=== PATIENT | female | born 1980 | race Caucasian/White ===

== ENCOUNTER 2020-11-03 14:24 | Emergency (ER) | payer OTHER, SELFPAY ==
[2020-11-03 14:27] VITALS: BP 150/90; PULSE 85; RESP 18; TEMP 36.4; O2SAT 97
[2020-11-03 14:46] LABS: Basophils Absolute Auto 0.1 K/mm3 (0.0-0.1); Basophils Percent Auto 0.5 % (0.2-1.2); Eosinophils Absolute Auto 0.1 K/mm3 (0-0.3); Eosinophils Percent Auto 1.1 % (0-4.4); Hemoglobin 14.4 g/dL (12.0-15.0); Immature Granulocyte Absolute 0.05 K/mm3 (0.00-0.031); Immature Granulocyte Percent A 0.5 % (0-0.5); Lymphocytes Absolute Auto 2.36 K/mm3 (0.9-3.2); Lymphocytes Percent Auto 22.6 % (18.3-44.2); Mean Corpuscular HGB Conc 33.5 g/dl (32-36); Mean Corpuscular Hemoglobin 30.6 pg (26-34); Mean Corpuscular Volume 91.5 fl (80-100); Mean Platelet Volume 9.6 fl (7.4-10.4); Monocytes Absolute Auto 0.5 K/mm3 (0.1-0.6); Monocytes Percent Auto 5.1 % (2.6-8.5); Neutrophils Absolute Auto 7.3 K/mm3 (1.3-6.7); Neutrophils Percent Auto 70.2 % (45.5-73.1); Platelet Count Result 367 k/mm3 (150-375); Red Cell Distribution Width 12.2 % (11.5-14.5); White Blood Count 10.4 K/mm3 (4.5-10.0)
[2020-11-03 14:58] LABS: Alanine Aminotransferase 36 U/L (4-35); Albumin Level 4.4 g/dL (3.5-5.1); Alkaline Phosphatase 60 U/L (38-126); Anion Gap 4 mmol/L (8-16); Aspartate Amino Transferase 37 U/L (14-36); Bilirubin,Total 0.3 mg/dL (0.2-1.3); Blood Urea Nitrogen 15 mg/dL (7-17); Calcium 9.3 mg/dL (8.4-10.2); Carbon Dioxide 30 mmol/L (22-30); Chloride 104 mmol/L (98-107); Estimated CRCL calculation 77 ml/min; Estimated Glomerular Filt Rate > 60; Glucose 100 mg/dL (65-105); Lipase 70 U/L (23-300); Potassium 3.8 mmol/L (3.4-5.0); Sodium 138 mmol/L (137-145)
[2020-11-03 14:59] VITALS: BP 121/90; PULSE 73
[2020-11-03 15:03] VITALS: BP 127/92; PULSE 71
[2020-11-03 15:05] VITALS: BP 132/90; PULSE 86
[2020-11-03 15:05] LABS: Add Urine Microscopic? NO; Appearance Urine Clear (Clear); Bilirubin Urine Negative (Negative); Blood Urine Negative (Negative); Color Urine Straw (Yellow); Glucose Urine UA Negative (Negative); Ketones Urine Negative (Negative); Leukocyte Esterase Ur Negative LEU/UL (Negative); Mucus Urine Rare /lpf; Nitrate Urine Negative (Negative); Protein Urine Negative (Negative); RBC Urine 0-2 /hpf (0-2); Specific Grav Ur 1.011 (1.001-1.035); Squamous Epithelial Cell Urine Rare /hpf (Few); Urobilinogen Urine Negative mg/dL (<2.0)
--- NOTE | 2020-11-03 16:27 | ECG_ITS ---
Measurements Intervals [place] Rate: 59 P: 65 IN: 144 QRS: 79 QRSD: 87 T: 57 QT: 403 QTc: 400 Interpretive Statements SINUS BRADYCARDIA POSSIBLE LEFT ATRIAL ENLARGEMENT BORDERLINE ECG Electronically Signed On 11-03-2020 19:21:37 MATERIAL CUTTER by Ghassan Galo D.O.
[2020-11-03 17:08] LABS: Troponin I < 0.012 ng/mL (0.000-0.034)
[2020-11-03 18:07] LABS: Magnesium 2.3 mg/dL (1.6-2.3)
[2020-11-03] MEDS: PROCHLORPERAZINE EDISYLATE 10 MG/2 ML VIAL IV PUSH (18:15)
[2020-11-03] MEDS: KETOROLAC 30 MG/ML VIAL (*BKC) IV PUSH (18:15)
[2020-11-03 18:18] LABS: Troponin I < 0.012 ng/mL (0.000-0.034)
[2020-11-03 18:19] VITALS: BP 122/78; PULSE 70; RESP 18; O2SAT 99
--- NOTE | 2020-11-03 19:01 | ED.ARRPALP ---
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 One of the nurses there checked her pulse and thought it was thready and irregular so she left work and came to the hospital. At this point her symptoms have been completely resolved for a couple hours and she is at baseline. She has no cardiac history and really no history of episodes like this previously. MD complaint: skipped beats and irregular heart beat Related Data Allergies Allergy/AdvReac Type Severity Reaction Status Date / Time No Known Allergies Allergy Verified 11/03/20 14:33 Review of Systems Review of Systems: All systems reviewed & are unremarkable except as noted in HPI and below Constitutional: Constitutional: Denies chills, Reports fatigue, Denies fever(s), Denies headache(s) and Denies weakness Eyes: Eyes: Reports no additional eye complaints and Denies change in vision ENT: Denies headache(s), Denies epistaxis, Denies nasal congestion and Denies sore throat Cardiovascular: Cardiovascular: Denies chest pain, Reports rapid heart rate, Denies leg edema, Denies palpitations and Denies dyspnea Respiratory: Respiratory: Denies cough, Reports dyspnea and Denies wheezing Gastrointestinal: Gastrointestinal: Denies abdominal pain, Denies diarrhea, Reports nausea and Denies vomiting Genitourinary: Genitourinary: Denies hematuria, Denies urinary frequency and Denies dysuria Musculoskeletal: Musculoskeletal: Denies deformity, Denies arthralgias, Denies joint swelling, Denies muscle weakness and Denies numbness Integumentary/Breasts: Skin/Breast: Denies rash and Denies wounds Neurologic: Denies headache(s), Denies focal weakness, Denies numbness and Denies weakness Psychiatric: Psychiatric: Reports no additional psychiatric complaints Endocrine: Endocrine: Denies fatigue and Denies palpitations Hematologic/Lymphatic: Hematologic/Lymphatic: Denies easy bleeding and Denies easy bruising Allergic/Immunologic: Allergic/Immunologic: Denies wheezing PMFSH Social History Social History Gender identity (if verbalized by the patient): Female Exam Const: General: no acute distress, well developed, alert and awake Nutritional Appearance: well nourished Orientation/consciousness: patient oriented x3 (alert) Limitations: no limitations HENMT: Head: normocephalic and atraumatic Ears: external ears normal General nose exam: No nasal discharge present and no epistaxis Face and sinus: face symmetric Eyes: Conjunctivae: conjunctivae normal Sclera: sclerae normal EOM: EOMs intact bilaterally Neck: Neck: normal visual inspection, supple and no JVD Chest: Chest palpation & inspection: deferred Resp: Effort & Inspection: normal respiratory effort Auscultation: clear to auscultation bilaterally, no rales, no rhonchi, no wheezes and other (BS =) Cardio: Rate: regular rate Rhythm: regular rhythm Heart sounds: no gallops and no murmurs GI: Inspection: normal to inspection and non-distended GI Palp: Yes Soft to palpation and No Tenderness to palpation present (GI) Back/Spine/Pelvis: Thoracic/Lumbar Spine: thoracic and lumbar spine normal to inspection Skin: General skin exam: normal color and no rashes or lesions noted Neuro: General: patient oriented x3 (alert), moves all extremities, no focal motor deficits and CN's II-XI intact bilaterally Cranial nerves: Yes facial symmetry Speech: n
== END 2020-11-03 19:23 | disposition home or self-care (01) ==
PROVIDERS: Emergency Provider Emergency Medicine
DX: R00.2 Palpitations (principal); R00.1 Bradycardia, unspecified; R94.31 Abnormal electrocardiogram [ECG] [EKG]
CPT/HCPCS: 36415; 80053; 81003; 81025; 83690; 83735; 84484; 85025; 93005; 96374; 96375; 99284; J0780; J1885

== ENCOUNTER → 2020-12-01 17:03 | Outpatient (CLI) | payer OTHER, SELFPAY ==
--- NOTE | ~2020-12-01 | MM_ITS ---
EXAMINATION: MM screening filemon BI w nasrin HISTORY: Screening mammogram TECHNIQUE: Craniocaudal and mediolateral oblique 3-D tomosynthesis images were obtained and synthetic 2-D images were generated. Bilateral rotated lateral cc views. CAD analysis was submitted and interp reted. COMPARISON: No prior mammogram is available for comparison at this institution. BREAST PARENCHYMAL COMPOSITION: The breasts are heterogeneously dense, which may obscure small masses . FINDINGS: There is no evidence of suspicious mass, calcification, or architectural distortion to sugg est malignancy in either breast. There has been no suspicious interval change. IMPRESSION: 1. No mammographic evidence of malignancy. 2. Recommend routine screening mammography in one year. BI-RADS Category 1: Negative Reviewed, dictated and finalized at location A. UITING OPERATIONS CONSULTANT
== END ==
PROVIDERS: Visit Provider Obstetrics & Gynecology
DX: Z12.31 Encounter for screening mammogram for malignant neoplasm of breast (principal)
CPT/HCPCS: 77063; 77067

== ENCOUNTER → 2021-02-08 10:31 | Outpatient (CLI) | payer OTHER, SELFPAY ==
--- NOTE | ~2021-02-08 | XR_ITS ---
EXAMINATION: XR foot RT min 3V DATE: 02/08/2021 11:12 INDICATION: Right foot pain TECHNIQUE: Dorsoplantar, lateral, and 2 oblique views of the right foot were obtained. COMPARISON: None. FINDINGS: There is no fracture, dislocation, or subluxation. The bones, soft tissues, and joint space s are normal. IMPRESSION: 1. No acute osseous abnormality. Reviewed, dictated and finalized at location A.
== END ==
PROVIDERS: PCP Family Medicine; Visit Provider Nurse Practitioner Family
DX: S99.921A Unspecified injury of right foot, initial encounter (principal); X58.XXXA Exposure to other specified factors, initial encounter
CPT/HCPCS: 73630

== ENCOUNTER → 2022-04-06 11:14 | Outpatient (CLI) | payer OTHER, SELFPAY ==
--- NOTE | ~2022-04-06 | MM_ITS ---
EXAMINATION: MM screening filemon BI w nasrin HISTORY: Screening TECHNIQUE: Craniocaudal and mediolateral oblique 3-D tomosynthesis images were obtained and synthetic 2-D images were generated. CAD analysis was submitted and interpreted. COMPARISON: 12/01/2020 BREAST PARENCHYMAL COMPOSITION: The breasts are heterogenously dense, which may obscure small masses FINDINGS: There is no evidence of suspicious mass, calcification, or architectural distortion to sugg est malignancy in either breast. There has been no suspicious interval change. IMPRESSION: 1. No mammographic evidence of malignancy. 2. Recommend routine screening mammography in one year. BI-RADS Category 1: Negative Reviewed, dictated and finalized at location A.
== END ==
PROVIDERS: PCP Family Medicine; Visit Provider Obstetrics & Gynecology
DX: Z12.31 Encounter for screening mammogram for malignant neoplasm of breast (principal)
CPT/HCPCS: 77063; 77067

== ENCOUNTER 2022-10-24 09:37 | Outpatient (CLI) | payer OTHER, SELFPAY ==
--- NOTE | 2022-11-14 18:37 | WPDHOMESLEEP ---
Sleep Study - Home Unattended Date of Study: 10/24/22 Ordering Provider: Heriberto Mattson MD Interpreting Provider: Karen Mcgrath, DO Home Sleep Study Type: Watch PAT Height: 1.68 m Weight: 88.451 kg Body Mass Index: 31.4 Neck Circumference (inches): 14.5 [place]: 7 Reason for Sleep Study Snoring, unrefreshing sleep Sleep History The patient is a 42-year-old female with depression GERD and seasonal allergies a sleep study by primary for evaluation sleep apnea. The patient denies awakening from sleep short of breath. She occasionally awakens at night with heartburn, belching or cough. She constantly snores loud enough that others complain. She constantly has trouble sleeping when she has a cold. She denies waking up gasping for air throughout night. She denies having breathing at night observed by herself or others. She occasionally sweats excessively at night. She denies having heart palpitations or irregular heartbeats during the night. She rarely falls asleep during the day but never while driving. She denies sleep paralysis, cataplexy and hypnagogic / hypnopompic hallucinations she denies having trouble at school work due to sleepiness she denies feeling afraid of to sleep. She occasionally has nightmares and occasionally remembers her dreams. She frequently has thoughts racing through her mind. He frequently feels sad, depressed and anxious. She occasionally has muscular tension. She occasionally notices parts of her body jerk. She denies kicking during the night. She denies having crawling and aching feelings in her legs as well as leg pain during the night. She rarely grinds her teeth during sleep but occasionally awakens with morning jaw pain. She is occasionally bothered by pain during the day and occasionally awakened by pain during the night. She frequently wakes up feeling stiff in morning. She frequently wakes up with sore or achy muscles. She frequently wakes up with pain in the, spine other joints. She goes to bed at 10:00 p.m. both weekdays and weekends. The amount of time it takes for her to fall asleep is variable. If she awakens throughout the night she is able to fall back asleep quickly. She wakes up between 5-6 a.m. weekdays between 8-10 a.m. weekends. She typically gets 7-8 hours of sleep per night. She will stay in bed for 5 minutes after waking up on weekdays and between 10-30 minutes weekends. She currently lives with her and 2 daughters. She does not consume any caffeinated beverages within 2 hours of bedtime. She does engage in physical exercise before bedtime she will watch television before falling asleep. She denies taking naps in the afternoon or the evening. She drinks 1-2 caffeinated beverages per day. She will drink up to 1 alcoholic beverage per day. She denies tobacco and recreational drug use. [facility] Past Medical History Medical History Anxiety BMI 26.0-26.9,adult BMI 30.0-30.9,adult GERD (gastroesophageal reflux disease) Headache Surgical History Surgical History History of hysterectomy Family History Family History Other Breast cancer Cerebrovascular accident Endometrial cancer Thyroid cancer Social History Social History Smoking status: Never smoker Alcohol intake: current Gender identity (if verbalized by the patient): Female Medications Home Medications Medication Instructions Recorded Confirmed Type escitalopram oxalate 20 mg tablet 20 mg PO DAILY #90 tabs 10/17/22 Rx pantoprazole 40 mg tablet,delayed See Rx Instructions .Route 10/31/22 Rx release .COMPLEX #90 tabs Sleep Procedure The sleep study was completed using [employer] a technically adequate device with seven channels: peripheral melina
[2022-11-14 18:51] VITALS: BMI 31.4
== END 2022-10-29 16:08 | disposition home or self-care (01) ==
LOC: ANHCSM 09:37
PROVIDERS: PCP Family Medicine; Visit Provider Family Medicine
DX: G47.30 Sleep apnea, unspecified (principal); G47.33 Obstructive sleep apnea (adult) (pediatric)
CPT/HCPCS: 95800

== ENCOUNTER → 2023-02-01 09:42 | Outpatient (CLI) | payer OTHER, SELFPAY ==
--- NOTE | ~2023-02-01 | XR_ITS ---
AP and lateral views of the sacrum/coccyx HISTORY: Pain FINDINGS: Visualized hip and SI joints are unremarkable. There is moderate to advanced facet arthropa thy at L4-L5 and L5-S1, with mild degenerative disc change. There is probable 3 mm anterolisthesis of L5 over S1. Soft tissues are unremarkable. IMPRESSION: 3 mm anterolisthesis of L5 over S1 with degenerative spondylosis of the lower lumbar spine, as detail ed above. No other significant findings identified. Reviewed, dictated and finalized at location M. IMPRESSION: 3 mm anterolisthesis of L5 over S1 with degenerative spondylosis of the lower l umbar spine, as detailed above. No other significant findings identified.
== END ==
PROVIDERS: PCP Family Medicine; Visit Provider Obstetrics & Gynecology
DX: R52 Pain, unspecified (principal); M47.896 Other spondylosis, lumbar region
CPT/HCPCS: 72220

== ENCOUNTER 2025-08-12 17:42 | Emergency (ER) | payer OTHER, SELFPAY ==
--- OUTSIDE RECORDS SUMMARY | 2020-12-01 | XMS_ITS | Encounter Summary ---
Author Organization [facility] Healthcare Address [address] [place] [address] Care Team Providers Care Deputy Chief Sheriff Name Role Phone Sebastien Busch MD Primary Care Provider [phone] Sebastien Busch MD Unavailable [phone] Reason for Visit * Diagnostic Imaging (Routine) - Pending Review Specialty Diagnoses / Procedures Referred By Kevin mcpherson Referred To Contact Procedures Breast Imaging Screening Outside Reference Transcribed Order, Provider Referral ID Status Reason Start Date Expiration Date V isits Requested Visits Authorized [id number] Pending Review 02/07/2025 03/09/2026 1 1 Encounter Details Date Type Department Care Team (Late st Contact Info) Description 12/01/2020 Hospital Encounter [facility]) [address] [place] [address] Social History Tobacco Use Types Packs/Day Years Used Date Smoking Tobacco: Never Smokeless Tobacco: Never Alcohol Use Standard Drinks/Week Comments Yes 0 (1 standard drink = 0.6 oz pur e alcohol) social Comments No Sex and Gender Information Value Date Recorded Sex Assigned at Not on file Legal Sex Female 9:14 PM WATER TREATMENT SPECIALIST Gender Identity Not on file Sexual Orientation Not on file documented as of this encounter Functional Status documented as of this encounter Plan of Treatment Not on file documented as of this encounter Procedures Procedure Name Priority Date/Time Associated Diagnosis Comments BREAST IMAGING MG SCREENING OUTSIDE REFERENCE Routine 12/01/2020 12:00 AM WATER TREATMENT SPECIALIST documented in this encounter Results * Breast Imaging Screening Outside Reference (12/01/2020 12:00 AM WATER TREATMENT SPECIALIST) Impressions [facility]_M[facility]MO[facility] - 02/07/2025 3:33 PM CDT These images are for Reference purposes only and have not been reviewed by [facility] Radiology. There will be no report generated by a [facility] Radiologist. Narrative [facility] - 02/07/2025 3:33 PM CDT EXAMINATION: Images For Reference Purposes Only us Provider Transcribed Order IMG MAMMO PROCEDURES Final Result [facility] documented in this encounter Visit Diagnoses Not on filedocumented in this encounter Additional Health Concerns Infection Onset Date Last Indicated Resolved Time COVID: Suspected 09/12/2022 09/12/2022 09/13/2022 3:05 AM WATER TREATMENT SPECIALIST COVID: Suspected 09/12/2022 09/12/2022 09/13/2022 5:40 AM WATER TREATMENT SPECIALIST Influenza, adult 09/12/2022 09/12/2022 09/19/2022 3:05 AM WATER TREATMENT SPECIALIST documented as of this encounter Care Teams Deputy Chief Sheriff Relationship Specialty Start Date End Date Sebastien Busch MD [address] [place] [address] PCP - General 05/05/20 05/19/24 Sebastien Busch MD [address] [place] [address] 05/05/20 05/19/24 documented as of this encounter
--- OUTSIDE RECORDS SUMMARY | 2020-12-01 | XMS_ITS | Encounter Summary ---
Author Organization [facility] Healthcare Address [address] [place] [address] Care Team Providers Care Licensed Acupuncturist Name Role Phone Sebastien Busch MD Primary Care Provider [phone] Sebastien Busch MD Unavailable [phone] Reason for Visit * Diagnostic Imaging (Routine) - Pending Review Specialty Diagnoses / Procedures Referred By Kevin mcpherson Referred To Contact Procedures Breast Imaging Screening Outside Reference Transcribed Order, Provider Referral ID Status Reason Start Date Expiration Date V isits Requested Visits Authorized [id number] Pending Review 02/07/2025 03/09/2026 1 1 Encounter Details Date Type Department Care Team (Late st Contact Info) Description 12/01/2020 Hospital Encounter [facility]) [address] [place] [address] Social History Tobacco Use Types Packs/Day Years Used Date Smoking Tobacco: Never Smokeless Tobacco: Never Alcohol Use Standard Drinks/Week Comments Yes 0 (1 standard drink = 0.6 oz pur e alcohol) social Comments No Sex and Gender Information Value Date Recorded Sex Assigned at Not on file Legal Sex Female 9:14 PM TRIMMING PRESS OPERATOR Gender Identity Not on file Sexual Orientation Not on file documented as of this encounter Functional Status documented as of this encounter Plan of Treatment Not on file documented as of this encounter Procedures Procedure Name Priority Date/Time Associated Diagnosis Comments BREAST IMAGING MG SCREENING OUTSIDE REFERENCE Routine 12/01/2020 12:00 AM TRIMMING PRESS OPERATOR documented in this encounter Results * Breast Imaging Screening Outside Reference (12/01/2020 12:00 AM TRIMMING PRESS OPERATOR) Impressions [facility] - 02/07/2025 3:33 PM CDT These images are for Reference purposes only and have not been reviewed by [facility] Radiology. There will be no report generated by a [facility] Radiologist. Narrative [facility]MAMMO[facility] - 02/07/2025 3:33 PM CDT EXAMINATION: Images For Reference Purposes Only us Provider Transcribed Order IMG MAMMO PROCEDURES Final Result [facility] documented in this encounter Visit Diagnoses Not on filedocumented in this encounter Additional Health Concerns Infection Onset Date Last Indicated Resolved Time COVID: Suspected 09/12/2022 09/12/2022 09/13/2022 3:05 AM TRIMMING PRESS OPERATOR COVID: Suspected 09/12/2022 09/12/2022 09/13/2022 5:40 AM TRIMMING PRESS OPERATOR Influenza, adult 09/12/2022 09/12/2022 09/19/2022 3:05 AM TRIMMING PRESS OPERATOR documented as of this encounter Care Teams Licensed Acupuncturist Relationship Specialty Start Date End Date Sebastien Busch MD [address] [place] [address] PCP - General 05/05/20 05/19/24 Sebastien Busch MD [address] [place] [address] 05/05/20 05/19/24 documented as of this encounter
--- NOTE | ~2025-08-12 | XR_ITS ---
EXAMINATION: XR chest 2V 08/12/2025 18:12 INDICATION: Chest pain PROCEDURE: 2 view chest COMPARISON: No prior studies for comparison. FINDINGS: The lungs are clear. The cardiomediastinal silhouette is within normal limits. There are no pleural effusions. There is no pneumothorax suspected. IMPRESSION: 1: NO ACUTE CARDIOPULMONARY DISEASE. Reviewed, dictated and finalized at location O. [employer]
[2025-08-12 17:43] VITALS: BP 150/102; PULSE 85; RESP 16; TEMP 36.8; O2SAT 96
--- OUTSIDE RECORDS SUMMARY | 2025-08-12 17:44 | XMS_ITS | Clinical Summary ---
Author Organization [facility] Address [address] [place] [address] Care Team Providers Care Reed Or Wind Instrument Repairer Name Role Phone Heriberto Mattson MD Primary Care Provider [phone] Samuel Tejeda MD Unavailable [phone] Christiano Baird MD PhD Unavailable [phone] Jaz Duke MD Unavailable [phone] Allergies No known active allergies Medications pantoprazole DR (PROTONIX) 40 mg EC tablet Take 1 tablet (40 mg total) by mouth every morning 0 Active escitalopram (LEXAPRO) 20 mg tablet Take 1 tablet (20 mg total) by mouth every morning 0 Active Lactobac no.41/Bifidobac t no.7 (PROBIOTIC-10 ORAL) Take 1 tablet by mouth every morning Active ergocalciferol, vitamin D2, (VITAMIN D2 ORAL) Take 1 tablet by mouth every morning Active multivitamin capsule Take 1 capsule by mouth every morning Active tobramycin-dexA METHasone (TOBRADEX) ophthalmic ointment 1/4 inch ribbon to operative eye(s) twice a day and taper as directed 3.5 g 0 Active prednisoLONE acetate (PRED FORTE) 1 % ophthalmic suspension Place 1 drop in left eye 4 times a day and taper as directed 10 mL 0 Active Active Problems Problem Noted Date Diagnosed Date 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 Diplopia 04/24/2020 Strabismus 04/24/2020 Tonsillitis 12/06/2016 Asymmetry of tonsils 12/04/2016 Amygdalolith 10/30/2016 Varicose veins of lower extremity 07/08/2016 Disorder of vein 07/08/2016 Pain of left lower extremity 04/26/2016 Pain of right lower extremity 04/26/2016 Altered bowel function 05/26/2012 Chronic infection of sinus 10/10/2011 Encounters Date Type Department Care Team Description 08/03/2025 10:20 AM CDT - 08/03/2025 11:59 PM CDT Hospital Encounter [facility]) [address] [place] [address] 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 Discharge Disposition: Discharge to home or self care 08/02/2025 Orders Only [facility] ([facility]) [address] [place] [address] Marisa Segovia MD from Last 3 Months Surgical History Surgery Date Site/Laterality Comments CATARACT EXTRACTION Cataract Surgery - (Added by TW Conv) LA DILATION & CURETTAGE DX&/ THER NONOBSTETRIC Dilation And Curettage - (Added by TW Conv) HYSTERECTOMY 2018 TONSILLECTOMY 2018 Medical History Medical History Date Comments GERD (gastroesophageal reflux disease) Depression Family History Medical History Relation Name Comments Prostate cancer Cousin Prostate cancer Father Breast cancer Maternal Grandmother Breast cancer Mother Endometrial cancer Mother Hypertension Mother Kidney cancer Mother Thyroid cancer Mother Ovarian cancer Neg Hx Relation Name Status Comments Cousin Alive Father Father's Sister Alive Maternal Grandmother Mother Other Alive Social History Tobacco Use Types Packs/Day Years Used Date Smoking Tobacco: Never Smokeless Tobacco: Never Alcohol Use Standard Drinks/Week Comments Yes 0 (1 standard drink = 0.6 oz pur e alcohol) social Comments No Sex and Gender Information Value Date Recorded Sex Assigned at Not on file Legal Sex Female 9:14 PM FROG CATCHER Gender Identity Not on file Sexual Orientation Not on file Obstetrics History Para Term AB IAB SAB Ectopic Multiple Livin g Live Births 2 2 Date Outcome GA Total Labor Labor/2nd/3rd Weight Sex Type Anes PTL Saarhi A1 A5 Name Clin Last Filed Vital Signs Vital Sign Reading Time Taken Comments Blood Pressure 125/83 01/28/2025 10:57 AM CDT Pulse 84 01/28/2025 10:57 AM CDT Temperature 36.8 C (98.3 F) 01/28/2025 10:57 AM CDT Respiratory Rate 18 01/28/2025 10:57 AM CDT Oxygen Saturation 96% 01/28/2025 10:57 AM CDT Inhaled Oxygen Concentration - - Weight 88.5 kg (195 lb) 08/03/2025 10:25 AM CDT Height 167.6 cm (5' 6) 02/14/2025 5:09 PM CDT Body Mass Index 31.47 02/14/2025 5:09 PM CDT Plan of Treatment Health Maintenance Due Date Last Done Comments Depression Screening 1980 Hepatitis C Screening 1980 DTaP/Tdap/Td Vaccine (1 - Tdap) 1991 Varicella Vaccines (1 of 2 - 13+ 2-dose series) 1993 Hepatitis B Screening 1998 Regular Well Visit/Exam 18-64 1998 HPV Vaccines (1 - 3-dose SCD M series) 2007 Covid-19 Vaccine (3 - 2024-2 6 season) 2025 10/25/2020, 10/04/2020 Influenza Vaccine (#1) 2025 , 07/26/2022 Breast Cancer Screening-Mammogram 08/03/2026 08/03/2025 Pneumococcal vaccine <65 Aged Out No longer eligible based on patient's age to complete this topic Procedures Procedure Name Priority Date/Time Associated Diagnosis Comments SCREENING MAMMOGRAM BILATERAL W JAKE Schedule Routine, Read Routine (OP Routine) 08/03/2025 10:34 AM CDT 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 OVERALL BI-RADS FINAL ASSESSMENT: 1 - Negative RECOMMENDATION: Recommend bilateral annual screening mammography. If supplemental screening is desired for heterogeneously dense breast tissue, consider breast MRI every 1-2 years. If breast MRI cannot be performed, contrast-enhanced mammography is an alternative. Narrative 08/04/2025 12:32 PM CDT EXAMINATION: Screening Mammogram Bilateral W Jake: 08/03/2025 COMPARISON: Relevant prior studies available at the time of interpretation were reviewed, including the most recent mammogram on: 04/06/2022. TECHNIQUE: Mammography was performed with 2D and 3D digital breast tomosynthesis (DBT) images. CAD was utilized. BREAST PARENCHYMAL COMPOSITION: The breasts are heterogeneously dense, which may obscure small masses. FINDINGS: Bilateral There is no suspicious mass, calcification, or architectural distortion in either breast. us Christiano Baird MD PhD IMG MAMMO PROCEDURES F inal Result from Last 3 Months Insurance [facility] [place] [address] [facility] Care Teams Reed Or Wind Instrument Repairer Relationship Specialty Start Date End Date Heriberto Mattson MD [address] [facility] [address] PCP - General Family Medicine 05/20/24 Samuel Tejeda MD [address] [address] Referring Physician Obstetrics and Gynecology 05/20/24 Christiano Baird MD PhD [address] DIV [employer]ARROW [employer] [place] [address] Consulting Physician Medical Oncology 07/01/24 Jaz Duke MD [address] [place] [place] [address] Referring Physician Genetics 07/01/24
--- OUTSIDE RECORDS SUMMARY | 2025-08-12 17:44 | XMS_ITS | Encounter Summary ---
Author Organization [facility] Address [address] [place] [address] Phone Care Team Providers Care Organic Chemistry Teacher Name Role Phone Sebastien Busch MD Primary Care Provider [phone] Sebastien Busch MD Unavailable [phone] Heriberto Mattson MD Primary Care Provider + [phone] Samuel Tejeda MD Unavailable [phone] Christiano Baird MD PhD Unavailable [phone] Jaz Duke MD Unavailable [phone] Encounter Details Date Type Department Care Team (Latest Contact Info) Description 02/01/2023 Orders Only [facility] Scanning, Provider Social History Tobacco Use Types Packs/Day Years Used Date Smoking Tobacco: Never Smokeless Tobacco: Never Alcohol Use Standard Drinks/Week Comments Yes 0 (1 standard drink = 0.6 oz pur e alcohol) social Comments No Sex and Gender Information Value Date Recorded Sex Assigned at Not on file Legal Sex Female 9:14 PM LINE SERVICE ATTENDANT Gender Identity Not on file Sexual Orientation Not on file documented as of this encounter Plan of Treatment Not on file documented as of this encounter Procedures Procedure Name Priority Date/Time Associated Diagnosis Comments SCAN - RADIOLOGY/IMAGING 02/01/2023 documented in this encounter Results * SCAN - RADIOLOGY/IMAGING (02/01/2023) Anatomical Region Laterality Modality Other us Provider Scanning Final Result documented in this encounter Visit Diagnoses Not on filedocumented in this encounter Care Teams Organic Chemistry Teacher Relationship Specialty Start Date End Date Sebastien Bucsh MD [address] [place] [address] PCP - General 05/05/20 05/19/24 Heriberto Mattson MD [address] [place] [address] PCP - General Family Medicine 05/20/24 Sebastien Busch MD [address] [place] [address] 05/05/20 05/19/24 Samuel Tejeda MD [address] [address] Referring Physician Obstetrics and Gynecology 05/20/24 Christiano Baird MD PhD [address] DIV IM BONE MARROW TRANSPLANT, [address] [place] [address] Consulting Physician Medical Oncology 07/01/24 Jaz Duke MD [address] DIV PED GENETICS [place] [address] Referring Physician Genetics 07/01/24 documented as of this encounter
--- OUTSIDE RECORDS SUMMARY | 2025-08-12 17:44 | XMS_ITS | Clinical Summary ---
Author Organization [facility] Address [address] [place] [address] Care Team Providers Care Grain Miller Helper Name Role Phone Samuel Curtis Primary Care Provider [phone] Source Comments [facility],non-owned Affiliates and Associated Physician Practices is amultiple site organization consisting of ambulatory clinics and hospital sitesin [place], [place], [place] and [place]. This disclosure is being madepursuant to the Care Everywhere program and may not contain all information available regarding this patient. Last updated 18.[facility] Allergies No known active allergies Medications * Be aware that medications may not be up to date on this document. Alwaysverify current medications with the patient. pantoprazole EC (PROTONIX) 40 MG tablet Take 40 mg by mouth once daily 02/04/2020 Active escitalopram (LEXAPRO) 20 MG tablet Take 20 mg by mouth once daily 04/05/2020 Active Active Problems No known active problems Social History Tobacco Use Types Packs/Day Years Used Date Smoking Tobacco: Never Smokeless Tobacco: Never Comments No Sex and Gender Information Value Date Recorded Sex Assigned at Not on file Legal Sex Female 3:10 PM CDT Gender Identity Not on file Sexual Orientation Not on file Last Filed Vital Signs Vital Sign Reading Time Taken Comments Blood Pressure 118/70 06/29/2021 7:21 PM CDT Pulse 84 06/29/2021 7:21 PM CDT Temperature 36.8 C (98.2 F) 06/29/2021 7:21 PM CDT Respiratory Rate 16 06/29/2021 7:21 PM CDT Oxygen Saturation - - Inhaled Oxygen Concentration - - Weight 74.8 kg (165 lb) 09/05/2020 5:51 PM PAPER CONE GRADER Height 167.6 cm (5' 6) 09/05/2020 5:51 PM PAPER CONE GRADER Body Mass Index 26.63 09/05/2020 5:51 PM PAPER CONE GRADER Plan of Treatment Health Maintenance Due Date Last Done Comments LIPID TESTING 1980 MAMMOGRAM 1980 HIV SCREENING 1995 HEPATITIS C SCREENING 08/20/1998 DTAP/TDAP/TD VACCINES (1 - Tdap) 1999 HEPATITIS B VACCINE (1 of 3 - 19+ 3-dose series) 1999 HPV VACCINE (1 - 3-dose SCDM series) 2007 SCREENING FOR DIABETES 09/05/2020 DEPRESSION SCREENING 10/06/2024 COVID-19 VACCINE ( - 2023-2 5 season) 2025 INFLUENZA VACCINE (#1) 2025 ZOSTER VACCINE (1 of 2) 2030 HIB VACCINE Aged Out No longer eligi ble based on patient's age to complete this topic MENINGOCOCCAL (Group B) VACC INE SHARED DECISION-MAKING Aged Out No longer eligibl e based on patient's age to complete this topic MENINGOCOCCAL GROUPS A/C/Y/W VACCINE Aged Out No longer eligible b ased on patient's age to complete this topic PNEUMOCOCCAL VACCINE Aged Out No long er eligible based on patient's age to complete this topic Insurance [facility] Care Teams Grain Miller Helper Relationship Specialty Start Date End Date Samuel Curtis [address] [place] [address] [place] [address] PCP - General 06/29/21
--- NOTE | 2025-08-12 17:46 | ECG_ITS ---
Test Date: 2025-08-12 17:49:12 Measurements Intervals Barry Rate: 64 P: 66 IA: 137 QRS: 66 QRSD: 85 T: 47 QT: 395 QTc: 410 Interpretive Statements SINUS RHYTHM Normal ECG No previous ECG available for comparison Electronically Signed On 08-12-2025 18:04:24 BARRER AND TACKER by Oj Payne M.D.
--- NOTE | 2025-08-12 17:53 | ED.GENADULT ---
HPI - General Adult General Chief complaint: Recheck/Abnormal Lab/Rx Stated complaint: BP ISSUES Time Seen by Provider: 08/12/25 17:53 Focused HPI: Patient is a 44 y/o female, with PMH of GERD, who presents to the ED with c/o CP. Patient reports she developed CP around 11am while at work. Pain was L-sided, sharp, lasted a few minutes before resolving. Radiated into her L shoulder/L upper arm. Denied aggravating or alleviating factors. Had a co-worker check her BP and it was elevated to 160/102. Reported having mild SOB associated with the pain, denies diaphoresis/nausea. Denies current pain, but does admit to feeling very fatigued. States she has had intermittent issues with elevated blood pressure in the past, but has never been placed on medication for HTN. Denies hx of HLD, DM, smoking, FHx of heart disease. GENERAL: Well-appearing, well-nourished, and in no acute distress. HEAD: Normocephalic, atraumatic. CHEST: Clear to auscultation. ?No respiratory distress. HEART: Regular rate and rhythm.? NEURO: ?Alert and oriented x3. Patient screened in triage and initial orders placed.? ?Additional care and disposition to be based upon?diagnostic testing and treatment. Source: patient Mode of arrival: ambulatory Limitations: no limitations Related Data Allergies Allergy/AdvReac Type Severity Reaction Status Date / Time No Known Allergies Allergy Verified 08/12/25 17:45 PMFSH Past Medical History Medical History BMI 30.0-30.9,adult BMI 26.0-26.9,adult Headache GERD (gastroesophageal reflux disease) Anxiety Surgical History Surgical History History of hysterectomy Family History Family History Other Breast cancer Cerebrovascular accident Endometrial cancer Thyroid cancer Social History Social History Alcohol intake: current Substance use: never Substance use type: does not use Do You Feel Safe in your Home?: Yes Lack of Transportation: No Lack of Food: Never True Current Housing: I Have Housing Concerned About Future Housing: No Difficulty Paying Gas/Electric Bills: No Difficulty Paying for Meds: No Currently Unemployed: No Education: Don't Know Difficulty w/ Childcare or Family Care: No Gender identity (if verbalized by the patient): Female Course Vital Signs Vital signs: Vital Signs Temperature 98.2 F 08/12/25 17:43 Pulse Rate 85 08/12/25 17:43 Respiratory Rate 16 08/12/25 17:43 Blood Pressure 150/102 H 08/12/25 17:43 Pulse Oximetry 96 08/12/25 17:43 Temperature 98.2 F 08/12/25 17:43 Pulse Rate 70 08/12/25 22:13 Respiratory Rate 18 08/12/25 22:13 Blood Pressure 144/92 H 08/12/25 22:13 Pulse Oximetry 100 08/12/25 22:13 Medical Decision Making MDM Narrative Medical decision making narrative: MSE by GISSELLE in triage Vital Signs Vital Signs: Vital Signs Temperature 98.2 F 08/12/25 17:43 Pulse Rate 85 08/12/25 17:43 Respiratory Rate 16 08/12/25 17:43 Blood Pressure 150/102 H 08/12/25 17:43 Pulse Oximetry 96 08/12/25 17:43 Temperature 98.2 F 08/12/25 17:43 Pulse Rate 70 08/12/25 22:13 Respiratory Rate 18 08/12/25 22:13 Blood Pressure 144/92 H 08/12/25 22:13 Pulse Oximetry 100 08/12/25 22:13 Lab Data 08/12/25 17:57 08/12/25 17:57 Labs: Lab Results 08/12/25 08/12/25 Range/Units 17:57 23:22 WBC 11.9 H (4.5-10.0) K/mm3 RBC 4.56 (4.2-5.4) M/mm3 Hgb 13.1 (12.0-15.0) g/dL Hct 40.9 (37.0-47.0) % MCV 89.7 (80-100) fl MCH 28.7 (26-34) pg MCHC 32.0 (32-36) g/dl RDW 12.8 (11.5-14.5) % Plt Count 362 (150-375) k/mm3 MPV 9.9 (7.4-10.4) fl Immature Gran % (Auto) 0.2 (0-0.5) % Neut % (Auto) 60.1 (45.5-73.1) % Lymph % (Auto) 31.5 (18.3-44.2) % [place] % (Auto) 5.8 (2.6-8.5) % Eos % (Auto) 1.9 (0-4.4) % Baso % (Auto) 0.5 (0.2-1.2) % Lymph # (Auto) 3.75 H (0.9-3.2) K/mm3 [place] # (Auto) 0.7 H (0.1-0.6) K/mm3 Eos # (Auto) 0.2 (0-0.3) K/mm3 Baso # (Auto) 0.1 (0.0-0.1) K/mm3 Abs Immat Gran (auto) 0.02 (0.00-0.031) K/mm3 Absolute Neuts (auto) 7.2 H (1.3-6.7) K/mm3 Absolute Nucleated RBC 0.000 (0.0-0.012) K/mm3 Nucleated RBC % 0.0 (0.0-0.2) % PT 12.0 (11.1-14.7) Seconds INR 0.9 APTT 32.6 (22.3-36.8) Seconds Sodium 137 (137-145) mmol/L Potassium 3.7 (3.4-5.0) mmol/L Chloride 104 (98-107) mmol/L Carbon Dioxide 25 (22-30) mmol/L Anion Gap 8 (4-12) mmol/L BUN 14 (7-17) mg/dL Creatinine 0.76 (0.7-1.0) mg/dL Estim Creat Clear Calc 89 ml/min Estimated GFR > 60 (59 - ) Glucose 97 (65-110) mg/dL Calcium 9.2 (8.4-10.2) mg/dL Total Bilirubin 0.3 (0.2-1.3) mg/dL AST 29 (14-36) U/L ALT 23 (6-35) U/L Alkaline Phosphatase 73 (38-126) U/L Troponin I < 0.012 < 0.012 (0.000-0.034) ng/mL Total Protein 7.5 (6.3-8.2) g/dL Albumin 4.5 (3.5-5.1) g/dL Lipase 82 (23-300) U/L Discharge Plan Discharge Clinical Impression: Chest pain Patient Disposition: Home Condition: Stable Instructions: Chest Pain (ED) Additional Instructions: Return to the Emergency Department if you experience fever, chest pain, shortness of breath, or any other symptoms that are concerning to you Take your home medications as prescribed Follow up with your primary care doctor Patient Language: Ukrainian Prescriptions: No Action famotidine 20 mg tablet 20 mg PO Q12H Qty: 180 3RF escitalopram oxalate 20 mg tablet See Rx Instructions .ROUTE .COMPLEX Qty: 90 3RF Dose Instruction: TAKE 1 TABLET DAILY Rx Instructions: TAKE 1 TABLET DAILY Follow-up/Referrals: Heriberto Mattson MD [Primary Care Provider, Family Practice]
[2025-08-12 18:06] LABS: Hematocrit 40.9 % (37.0-47.0); Hemoglobin 13.1 g/dL (12.0-15.0); Immature Granulocyte Percent A 0.2 % (0-0.5); Lymphocytes Absolute Auto 3.75 K/mm3 (0.9-3.2); Mean Corpuscular HGB Conc 32.0 g/dl (32-36); Mean Corpuscular Hemoglobin 28.7 pg (26-34); Mean Corpuscular Volume 89.7 fl (80-100); Nucleated Red Blood Cells Absolute Auto 0.000 K/mm3 (0.0-0.012); Nucleated Red Blood Cells Perc 0.0 % (0.0-0.2); Platelet Count Result 362 k/mm3 (150-375); Red Blood Count 4.56 M/mm3 (4.2-5.4); White Blood Count 11.9 K/mm3 (4.5-10.0)
[2025-08-12 18:29] LABS: Alanine Aminotransferase 23 U/L (6-35); Albumin Level 4.5 g/dL (3.5-5.1); Alkaline Phosphatase 73 U/L (38-126); Anion Gap 8 mmol/L (4-12); Aspartate Amino Transferase 29 U/L (14-36); Bilirubin,Total 0.3 mg/dL (0.2-1.3); Blood Urea Nitrogen 14 mg/dL (7-17); Calcium 9.2 mg/dL (8.4-10.2); Carbon Dioxide 25 mmol/L (22-30); Chloride 104 mmol/L (98-107); Estimated CRCL calculation 89 ml/min; Estimated Glomerular Filt Rate > 60; Glucose 97 mg/dL (65-110); Lipase 82 U/L (23-300); Potassium 3.7 mmol/L (3.4-5.0); Sodium 137 mmol/L (137-145); Total Protein 7.5 g/dL (6.3-8.2)
[2025-08-12 18:36] LABS: Troponin I < 0.012 ng/mL (0.000-0.034)
[2025-08-12 18:41] LABS: INR 0.9; Prothrombin Time 12.0 Seconds (11.1-14.7)
[2025-08-12 18:42] LABS: Partial Thromboplastin Time 32.6 Seconds (22.3-36.8)
[2025-08-12 22:13] VITALS: BP 144/92; PULSE 70; RESP 18; O2SAT 100
--- OUTSIDE RECORDS SUMMARY | 2025-08-12 22:50 | XMS_ITS | Clinical Summary ---
Author Organization 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 Discharge Disposition: Discharge to home or self care 08/02/2025 Orders Only [facility] ([facility]) [address] [place] [address] Marisa Segovia MD from Last 3 Months Surgical History Surgery Date Site/Laterality Comments CATARACT EXTRACTION Cataract Surgery - (Added by TW Conv) NV DILATION & CURETTAGE DX&/ THER NONOBSTETRIC Dilation [...] on file Legal Sex Female 9: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 Gender Identity Not on file Sexual Orientation Not on file Obstetrics History Para Term AB IAB SAB Ectopic Multiple Livin g Live Births 2 2 Date Outcome GA Total Labor Labor/2nd/3rd Weight Sex Type Anes PTL Sarahi A1 A5 Name Clin Last Filed Vital [...] inal Result from Last 3 Months Insurance [facility] H[facility]/PPO Address: [facility] [address] [place] [address] [facility] H[facility]/PPO Address: [address] [place] [address] [place] [address] [facility] HMO/PPO Address: [address] [address] Care Teams Marine Service Manager Relationship Specialty Start Date End Date Heriberto Mattson MD [address] [facility] [place] [address] PCP - General Family Medicine 05/20/24 Samuel Tejeda MD [address] [address] Referring Physician Obstetrics and Gynecology 05/20/24 Christiano Baird MD PhD [address] DIV IM BONE MARROW TRANSPLANT, [address] [place] [address] Consulting Physician Medical Oncology 07/01/24 Jza Duke MD [address] PED [place] [address] Referring Physician Genetics 07/01/24
--- OUTSIDE RECORDS SUMMARY | 2025-08-12 22:50 | XMS_ITS | Encounter Summary ---
Author Organization [facility] Address [address] [place] [address] Phone Care Team Providers Care Tractor Expert Name Role Phone Sebastien Busch MD Primary Care Provider [phone] Sebastien Busch MD Unavailable [phone] Heriberto Mattson MD Primary Care Provider [phone] Samuel Tejeda MD Unavailable [phone] Christiano Baird MD PhD Unavailable [phone] Jaz Duke MD Unavailable [phone] Encounter Details Date Type Department Care Team [...] on file Legal Sex Female 9:14 PM RADIATOR CLEANER Gender Identity Not on file Sexual Orientation [...] on filedocumented in this encounter Care Teams Tractor Expert Relationship Specialty Start Date End Date Sebastien Busch MD [address] [place] [address] PCP - General 05/05/20 05/19/24 Heriberto Mattson MD [address] [place] [address] PCP - General Family Medicine 05/20/24 Sebastien Busch MD [address] [place] [address] 05/05/20 05/19/24 Samuel Tejeda MD [address] [address] Referring Physician Obstetrics and Gynecology 05/20/24 Christiano Baird MD PhD [address] DIV IM BONE MARROW TRANSPLANT, [address] [place] [address] Consulting Physician Medical Oncology 07/01/24 Jaz Duke MD [address] DIV PED GENETICS [place] [address] Referring Physician Genetics 07/01/24 documented as of this encounter
--- OUTSIDE RECORDS SUMMARY | 2025-08-12 22:50 | XMS_ITS | Clinical Summary ---
Author Organization [facility] Address [address] [place] [address] Care Team Providers Care Cryptologist Name Role Phone Samuel Curtis Primary Care Provider [phone] Source Comments [facility],non-owned Affiliates and Associated Physician Practices is amultiple site organization consisting of ambulatory clinics and hospital sitesin [place], [place], [place] and [place]. This disclosure is being madepursuant to the Care Everywhere program and may not contain all information available regarding this patient. Last updated 18.[facility] Allergies No known active allergies Medications * [...] 74.8 kg (165 lb) 09/05/2020 5:51 PM WIRE THREADER Height 167.6 cm (5' 6) 09/05/2020 5:51 PM WIRE THREADER Body Mass Index 26.63 09/05/2020 5:51 PM WIRE THREADER Plan of Treatment Health Maintenance Due Date [...] patient's age to complete this topic Insurance [facility] Care Teams Cryptologist Relationship Specialty Start Date End Date Samuel Curtis [address] [place] [address] [address] PCP - General 06/29/21
--- NOTE | 2025-08-12 23:28 | ECG_ITS ---
Test Date: 2025-08-12 23:28:23 Measurements Intervals Mcgregor Rate: 59 P: 48 SC: 141 QRS: 57 QRSD: 86 T: 46 QT: 418 QTc: 416 Interpretive Statements SINUS BRADYCARDIA OTHERWISE NORMAL ECG Compared to ECG 08/12/2025 17:49:12 Sinus rhythm no longer present Electronically Signed On 08-13-2025 08:31:51 MUSCULOSKELETAL PHYSIOTHERAPIST by Oj Payne M.D.
[2025-08-12 23:48] LABS: Troponin I < 0.012 ng/mL (0.000-0.034)
--- NOTE | 2025-08-13 03:13 | ED.GENADULT ---
HPI - General Adult General Chief complaint: Recheck/Abnormal Lab/Rx Stated complaint: BP ISSUES Time Seen by Provider: 08/12/25 17:53 Source: patient Mode of arrival: ambulatory Limitations: no limitations History of Present Illness HPI narrative: 44-year-old female presenting with complaints of sharp left-sided chest pain that radiates to her left shoulder. Patient states she was sitting at work when it started. Patient denies headache, vision changes, back pain, shortness of breath, diaphoresis, nausea/vomiting, abdominal pain. Related Data Allergies Allergy/AdvReac Type Severity Reaction Status Date / Time No Known Allergies Allergy Verified 08/12/25 17:45 Review of Systems Review of Systems: All systems reviewed & are unremarkable except as noted in HPI and below PMFSH Past Medical History Medical History BMI 30.0-30.9,adult BMI 26.0-26.9,adult Headache GERD (gastroesophageal reflux disease) Anxiety Surgical History Surgical History History of hysterectomy Family History Family History Other Breast cancer Cerebrovascular accident Endometrial cancer Thyroid cancer Social History Social History Alcohol intake: current Substance use: never Substance use type: does not use Do You Feel Safe in your Home?: Yes Lack of Transportation: No Lack of Food: Never True Current Housing: I Have Housing Concerned About Future Housing: No Difficulty Paying Gas/Electric Bills: No Difficulty Paying for Meds: No Currently Unemployed: No Education: Don't Know Difficulty w/ Childcare or Family Care: No Gender identity (if verbalized by the patient): Female Exam Narrative: GENERAL: Well-appearing, well-nourished, and in no acute distress. HEAD: Normocephalic, atraumatic. EYES: PERRLA and EOMI. ENT: Nares clear, no rhinorrhea or epistaxis. Mucous membranes moist. Oropharynx without tonsillar hypertrophy exudate or other lesions. Bilateral TMs pearly neri non-bulging NECK: Supple. No adenopathy or masses. No carotid bruits or JVD CHEST: Clear to auscultation. No respiratory distress. No wheezes rales or rhonchi HEART: Regular rate and rhythm. No murmur heard. Normal peripheral pulses. ABDOMEN: Soft, nontender, nondistended, normal active bowel sounds. EXTREMITIES: Normal range of motion. No edema. SKIN: Warm, dry, no rash. NEURO: No focal deficits. Alert and oriented x3. PSYCH: Normal mood and affect Course Vital Signs Vital signs: Vital Signs Temperature 98.2 F 08/12/25 17:43 Pulse Rate 85 08/12/25 17:43 Respiratory Rate 16 08/12/25 17:43 Blood Pressure 150/102 H 08/12/25 17:43 Pulse Oximetry 96 08/12/25 17:43 Temperature 98.2 F 08/12/25 17:43 Pulse Rate 70 08/12/25 22:13 Respiratory Rate 18 08/12/25 22:13 Blood Pressure 144/92 H 08/12/25 22:13 Pulse Oximetry 100 08/12/25 22:13 Medical Decision Making MDM Narrative Medical decision making narrative: 44-year-old female presenting with complaints of sharp left-sided chest pain that radiates to her left shoulder. Patient states she was sitting at work when it started. Patient denies headache, vision changes, back pain, shortness of breath, diaphoresis, nausea/vomiting, abdominal pain. Patient's EKGs and labs are without significant high risk changes. EKG w/o acute ischemic changes. Troponin negative. Cardiac risk factors reviewed. HEART score = 0 . Patient is felt likely low risk for ACS and reasonable for further risk stratification testing as an outpatient. Pain was not sudden or maximal in onset without tearing or ripping quality. No other signs or symptoms to suggest aortic dissection. A low-risk Wells criteria is noted, PE is felt to be unlikely. No pneumonia seen on evaluation today. Patient is felt to be a reasonable candidate for continued evaluation as an outpatient. Medical Records Medical records reviewed: Yes I reviewed the external patient's medical records. Vital Signs Vital Signs: Vital Signs Temperature 98.2 F 08/12/25 17:43 Pulse Rate 85 08/12/25 17:43 Respiratory Rate 16 08/12/25 17:43 Blood Pressure 150/102 H 08/12/25 17:43 Pulse Oximetry 96 08/12/25 17:43 Temperature 98.2 F 08/12/25 17:43 Pulse Rate 70 08/12/25 22:13 Respiratory Rate 18 08/12/25 22:13 Blood Pressure 144/92 H 08/12/25 22:13 Pulse Oximetry 100 08/12/25 22:13 Lab Data Lab results reviewed: Yes I reviewed the patient's lab results. 08/12/25 17:57 08/12/25 17:57 Labs: Lab Results 08/12/25 08/12/25 Range/Units 17:57 23:22 WBC 11.9 H (4.5-10.0) K/mm3 RBC 4.56 (4.2-5.4) M/mm3 Hgb 13.1 (12.0-15.0) g/dL Hct 40.9 (37.0-47.0) % MCV 89.7 (80-100) fl MCH 28.7 (26-34) pg MCHC 32.0 (32-36) g/dl RDW 12.8 (11.5-14.5) % Plt Count 362 (150-375) k/mm3 MPV 9.9 (7.4-10.4) fl Immature Gran % (Auto) 0.2 (0-0.5) % Neut % (Auto) 60.1 (45.5-73.1) % Lymph % (Auto) 31.5 (18.3-44.2) % [place] % (Auto) 5.8 (2.6-8.5) % Eos % (Auto) 1.9 (0-4.4) % Baso % (Auto) 0.5 (0.2-1.2) % Lymph # (Auto) 3.75 H (0.9-3.2) K/mm3 [place] # (Auto) 0.7 H (0.1-0.6) K/mm3 Eos # (Auto) 0.2 (0-0.3) K/mm3 Baso # (Auto) 0.1 (0.0-0.1) K/mm3 Abs Immat Gran (auto) 0.02 (0.00-0.031) K/mm3 Absolute Neuts (auto) 7.2 H (1.3-6.7) K/mm3 Absolute Nucleated RBC 0.000 (0.0-0.012) K/mm3 Nucleated RBC % 0.0 (0.0-0.2) % PT 12.0 (11.1-14.7) Seconds INR 0.9 APTT 32.6 (22.3-36.8) Seconds Sodium 137 (137-145) mmol/L Potassium 3.7 (3.4-5.0) mmol/L Chloride 104 (98-107) mmol/L Carbon Dioxide 25 (22-30) mmol/L Anion Gap 8 (4-12) mmol/L BUN 14 (7-17) mg/dL Creatinine 0.76 (0.7-1.0) mg/dL Estim Creat Clear Calc 89 ml/min Estimated GFR > 60 (59 - ) Glucose 97 (65-110) mg/dL Calcium 9.2 (8.4-10.2) mg/dL Total Bilirubin 0.3 (0.2-1.3) mg/dL AST 29 (14-36) U/L ALT 23 (6-35) U/L Alkaline Phosphatase 73 (38-126) U/L Troponin I < 0.012 < 0.012 (0.000-0.034) ng/mL Total Protein 7.5 (6.3-8.2) g/dL Albumin 4.5 (3.5-5.1) g/dL Lipase 82 (23-300) U/L Imaging Data Attestation: I personally reviewed and interpreted this imaging study as follows: Radiologist's impression: ITS Impressions Chest X-Ray 08/12/25 18:15 IMPRESSION: 1: NO ACUTE CARDIOPULMONARY DISEASE. ECG Data EKG #1: ECG completion date: 08/12/25 ECG completion time: 17:49 EKG Interpretation: normal rate, sinus rhythm and no acute changes Discharge Plan Discharge Clinical Impression: Chest pain Patient Disposition: Home Condition: Stable Instructions: Chest Pain (ED) Additional Instructions: Return to the Emergency Department if you experience fever, chest pain, shortness of breath, or any other symptoms that are concerning to you Take your home medications as prescribed Follow up with your primary care doctor Patient Language: Tuvaluan Prescriptions: No Action famotidine 20 mg tablet 20 mg PO Q12H Qty: 180 3RF escitalopram oxalate 20 mg tablet See Rx Instructions .ROUTE .COMPLEX Qty: 90 3RF Dose Instruction: TAKE 1 TABLET DAILY Rx Instructions: TAKE 1 TABLET DAILY Follow-up/Referrals: Heriberto Mattson MD [Primary Care Provider, [facility]]
== END 2025-08-13 00:56 | disposition home or self-care (01) ==
PROVIDERS: Student in an Organized Health Care Education/Training Program; PCP Family Medicine
DX: R07.9 Chest pain, unspecified (principal); K21.9 Gastro-esophageal reflux disease without esophagitis; F41.9 Anxiety disorder, unspecified; Z90.710 Acquired absence of both cervix and uterus; Z79.899 Other long term (current) drug therapy; R00.1 Bradycardia, unspecified
CPT/HCPCS: 36415; 71046; 80053; 83690; 84484; 85025; 85610; 85730; 93005; 99284